=== PATIENT | female | born 1950 ===

== ENCOUNTER 2018-05-13 11:58 | Outpatient (CLI) | payer MEDICARE | END 2018-05-13 11:59 | disposition home or self-care (01) | LOC: C.MAMMO 11:58 | DX: Z12.39 Encounter for other screening for malignant neoplasm of breast (principal) ==

== ENCOUNTER 2018-06-08 08:38 | Outpatient (CLI) | payer MEDICARE | END 2018-06-08 08:39 | disposition home or self-care (01) | LOC: C.USIC 08:38 ==